=== PATIENT | female | born 1995 | race Caucasian/White ===

== ENCOUNTER 2024-01-02 12:30 | Outpatient (AMB) | payer BC, SELFPAY ==
--- NOTE | 2024-01-02 12:35 | MHC.PC.OV ---
Vital Signs 01/02/24 12:37 Height 5 ft 4 in Weight 145 lb BMI 24.9 BP 120/76 Blood Pressure Location Rt brachial Position Sitting Pulse 82 Pulse Source Pulse Oximeter Pulse Oximetry (%) 99 Oxygen Delivery Method Room Air Intake Visit Reasons: Annual PE Allergies wood Adverse Reaction (Mild, Uncoded 01/02/24 12:38) hand swelling Medication List - Last Reconciled 01/02/24 by Delroy Darnell MD bupropion HCl XL 150 mg PO QAM clonazepam 0.5 mg PO DAILY PRN dextroamphetamine-amphetamine 15 mg 1 tab PO BID escitalopram oxalate 20 mg PO DAILY quetiapine 100 mg PO BEDTIME Tobacco use date assessed: 01/02/24 Dental Screening Dental Screen Date: 01/02/24 Did you have a dental visit in the last 12 months?: Yes Did you have a dental problem in the last 6 months where you did not have access to dental care?: No Was dental information given to patient?: Patient has dentist HPI Annual PE HPI Details Patient is 28 year gentleman came in today physical examination Patient was last seen in 2021 He is taking psychiatric medications through Psychiatry Patient says that she feels she has developed allergy to food 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 Lab order placed to be done fasting. Physical exam 1 year [facility] Social History Housing: Apartment Patient Tobacco Use Status: Never used Tobacco e-Cigarette/Vaping Use: Never Used Second Hand Smoke Exposure: Yes service: No Current occupational status: employed Cognitive needs: No Hearing needs: No Vision needs: No Questionnaire Thrive Questionnaire Date Thrive assessed: 03/04/22 AUDIT C Alcohol Use Questionnaire (AUDIT-C) 1. How often do you have a drink containing alcohol?: 2-4 times a month 2. How many drinks containing alcohol do you have on a typical day when you are drinking?: 1 or 2 3. How often do you have six or more drinks on one occasion?: Never Total Score: 2 Score Reviewed/Action Taken: No MESFIN-7 AMB Questionnaire MESFIN-7 Date MESFIN - 7 assessed: 03/04/22 Source: Developed by Drs. Janes Murillo, Kendra Rai, Ben Luis and colleagues, with an educational frank from [employer]. Review of Systems Const Denies chills, Denies fever(s) and Denies headache(s) Eyes Denies blurry vision ENT Denies headache(s), Denies nasal discharge, Denies nasal obstruction, Denies odynophagia and Denies sinus pain Card Denies chest pain at rest and Denies chest pain with activity Resp Denies cough and Denies hemoptysis GI Denies diarrhea, Denies odynophagia, Denies vomiting and Denies hematemesis Reports as per HPI Musc Denies abnormal gait Skin/Breast Reports as per HPI Neuro Denies Neuro-related abnormal movements, Denies Abnormal speech present, Denies abnormal gait, Denies headache(s) and Denies Sensory deficit (Neuro) Psych Denies mood swings and Denies paranoia Endo Reports as per HPI Mic/Lymph Reports as per HPI Aller/Immun Reports as per HPI Physical exam (Primary Care) Vital Signs: Last Vital Signs Pulse 82 01/02/24 12:37 BP 120/76 01/02/24 12:37 Pulse Ox 99 01/02/24 12:37 Oxygen Delivery Method Room Air 01/02/24 12:37 BMI result Body Mass Index 24.9 Tobacco/Smoking Status: Tobacco use Status Tobacco use date assessed 01/02/24 01/02/24 12:41 Patient Tobacco Use Status Never used Tobacco 01/02/24 12:39 e-Cigarette/Vaping Use Never Used 01/02/24 12:39 Thrive Assessment: Date of Thrive Assessment Date Thrive assessed 03/04/22 01/02/24 12:39 Const General: cooperative, comfortable and no acute distress Orientation/consciousness: patient oriented x3 HENMT Head: Yes normocephalic and Yes atraumatic Eyes General: appearance normal, both eyes and all related structures Pupils: Equal, round and reactive pupils present EOM: EOMs intact bilaterally Neck Neck: Yes supple and No lymphadenopathy Thyroid: Thyroid normal Lymphatic: no lymphadenopathy noted Resp Effort & Inspection: normal respiratory effort and able to speak in complete sentences Auscultation: clear to auscultation bilaterally Cardio Heart sounds: S1 normal heart sound present and S2 normal heart sound present GI Palpation (GI): Soft to palpation and nontender Auscultation: normal bowel sounds General: Yes no CVA tenderness Back/Spine/Pelvis Back: no CVA tenderness Skin General skin exam: elasticity normal and turgor normal Neuro General: patient oriented x3 and gait normal Cranial nerves: Yes Equal, round and reactive pupils present Speech: No Abnormal speech present Sensory Exam: No Sensory deficit (Neuro) Coordination: tandem gait normal and Romberg test negative Extrem General: Yes normal exam except as noted and No edema Assessment and Plan Assessment & Plan (1) Encounter for general adult medical examination with abnormal findings: Code(s): Z00.01 - Encounter for general adult medical examination with abnormal findings (2) 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: Code(s): L23.7 - Allergic contact dermatitis due to plants, except food (3) Major depression, recurrent: Code(s): F33.9 - Major depressive disorder, recurrent, unspecified Qualifiers: Active/Remission status: in full remission Qualified Code(s): F33.42 - Major depressive disorder, recurrent, in full remission (4) Anxiety, generalized: Code(s): F41.1 - Generalized anxiety disorder (5) ADD (attention deficit disorder): Code(s): F98.8 - Other specified behavioral and emotional disorders with onset usually occurring in childhood and adolescence Qualifiers: Hyperactivity presence: unspecified Qualified Code(s): F98.8 - Other specified behavioral and emotional disorders with onset usually occurring in childhood and adolescence Plan Patient is 28 year gentleman came in today physical examination Patient was last seen in 2021 He is taking psychiatric medications through Psychiatry Patient says that she feels she has developed allergy to food 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 Lab order placed to be done fasting. Physical exam 1 year Orders: Orders Complete Blood Count Auto Diff Today F33.9 - Major depressive disorder, recurrent, unspecified, F41.1 - Generalized anxiety disorder, F98.8 - Other specified behavioral and emotional disorders with onset usually occurring in childhood and adolescence, L23.7 - Allergic contact dermatitis due to plants, except food, Z00.01 - Encounter for general adult medical examination with abnormal findings Comprehensive Brandt. Panel Fast Today F33.9 - Major depressive disorder, recurrent, unspecified, F41.1 - Generalized anxiety disorder, F98.8 - Other specified behavioral and emotional disorders with onset usually occurring in childhood and adolescence, L23.7 - Allergic contact dermatitis due to plants, except food, Z00.01 - Encounter for general adult medical examination with abnormal findings TSH reflex Free T4 Today F33.9 - Major depressive disorder, recurrent, unspecified, F41.1 - Generalized anxiety disorder, F98.8 - Other specified behavioral and emotional disorders with onset usually occurring in childhood and adolescence, L23.7 - Allergic contact dermatitis due to plants, except food, Z00.01 - Encounter for general adult medical examination with abnormal findings Lipid Panel Today F33.9 - Major depressive disorder, recurrent, unspecified, F41.1 - Generalized anxiety disorder, F98.8 - Other specified behavioral and emotional disorders with onset usually occurring in childhood and adolescence, L23.7 - Allergic contact dermatitis due to plants, except food, Z00.01 - Encounter for general adult medical examination with abnormal findings Referrals Allergy & Immunology Referral L23.7 - Allergic contact dermatitis due to plants, except food Coding Level of Care Code Est Pt Level 3 (23434) New Pt Prev Care 18-39yr([id number] Diagnoses Encounter for general adult medical examination with abnormal findings Z00.01 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
[2024-01-02 12:37] VITALS: BP 120/76; PULSE 82; O2SAT 99; BMI 24.9
== END 2024-01-02 12:49 | disposition home or self-care (01) ==
PROVIDERS: PCP Internal Medicine; Visit Provider Internal Medicine
DX: Z00.00 Encounter for general adult medical examination without abnormal findings (principal); L23.7 Allergic contact dermatitis due to plants, except food; F33.42 Major depressive disorder, recurrent, in full remission; F41.1 Generalized anxiety disorder; F98.8 Other specified behavioral and emotional disorders with onset usually occurring in childhood and adolescence
CPT/HCPCS: 99395